=== PATIENT | male | born 1975 | race African-American/Black ===

== ENCOUNTER 2025-05-18 21:00 | Emergency (ER) | payer MEDICAID ==
[~2025-05-18] VITALS: Ht 170.2 cm; Wt 70.0 kg
[2025-05-18 21:03] VITALS: BP 210/122; PULSE 104; RESP 14; TEMP 36.7; O2SAT 100
[2025-05-18] MEDS ORDERED: NALO4SPR BOTHNSTRLS (21:27)
== END 2025-05-18 21:49 | disposition home or self-care (01) ==
LOC: ER 21:00
DX: T40.601A Poisoning by unspecified narcotics, accidental (unintentional), initial encounter (principal); Z79.899 Other long term (current) drug therapy; Y92.89 Other specified places as the place of occurrence of the external cause
CPT/HCPCS: 99283